=== PATIENT | male | born 1975 | race Caucasian/White ===

== ENCOUNTER 2017-03-04 17:23 | Emergency (ER) | payer MEDICAID, OTHER ==
[~2017-03-04] VITALS: Ht 165.1 cm; Wt 81.5 kg
[2017-03-04 17:26] VITALS: Ht 165.1 cm; Wt 81.5 kg
[2017-03-04] MEDS ORDERED: ONDANSETRON (ODT) 4 MG TAB ODT STA (18:15)
[2017-03-04] MEDS ORDERED: ACETAMINOPHEN 325 MG TAB PO ONE (18:30)
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
[2017-03-04] MEDS ORDERED: IBUP-1542 PO (20:13)
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
== END 2017-03-04 20:20 | disposition home or self-care (01) ==
LOC: FTE 17:23
DX: S09.90XA Unspecified injury of head, initial encounter (principal); R51 Headache; Y09 Assault by unspecified means
CPT/HCPCS: 70450; Z7502; Z7610